=== PATIENT | female | born 1965 | race Caucasian/White ===

== ENCOUNTER 2020-03-23 01:03 | Emergency (ER) | payer OTHER ==
[2020-03-23 01:39] LABS: BASOPHIL 0.6 % (0-2); EOSINOPHIL 2.5 % (0-5); HCT 47.2 % (37.0-47.0); HGB 15.9 g/dl (12.5-16.0); LYMPHOCYTE 40.8 % (15-48); MCH 31.8 pg (25.0-31.0); MCHC 33.7 g/dL (32.0-36.0); MCV 94.4 fL (78.0-100.0); MONOCYTE 5.9 % (0-12); MPV 11.6 fL (6.0-9.5); NEUTROPHIL 49.9 % (41-80); NRBC 0; PLT 308 K/uL (150-400); RDW 12.5 % (11.5-14.0)
[2020-03-23 01:43] LABS: WBC 13.1 K/uL (4.0-10.5)
[2020-03-23 01:44] LABS: INR 0.83 (0.9-1.2); PROTHROMBIN TIME 10.8 SECONDS (11.4-13.6)
[2020-03-23 01:51] LABS: BILIRUBIN - TOTAL 0.2 mg/dL (0.2-1.0); BUN/CREAT RATIO (CALC) 16.9 RATIO; CREATININE 0.83 mg/dL (0.51-0.95); GLOBULIN (CALCULATION) 3.2 g/dL; POTASSIUM 3.4 mmol/L (3.5-5.1); TOTAL PROTEIN 7.2 g/dL (6.4-8.2)
== END 2020-03-23 08:30 | disposition other institution (70) ==
LOC: FER 01:03
PROVIDERS: Emergency Medicine
DX: I48.91 Unspecified atrial fibrillation (principal); R79.89 Other specified abnormal findings of blood chemistry; I10 Essential (primary) hypertension; F17.210 Nicotine dependence, cigarettes, uncomplicated; Z20.822 Contact with and (suspected) exposure to COVID-19
CPT/HCPCS: 36415; 71045; 80053; 83735; 84484; 85025; 85610; 93005; J0153; J1644; J7050; U0002